=== PATIENT | female | born 1970 | race Caucasian/White ===

== ENCOUNTER 2021-01-23 03:03 | Observation (INO) ==
[2021-01-23] MEDS ORDERED: Naloxone 0.4 MG/ML INJ IVP PRN (08:51)
[2021-01-23] MEDS ORDERED: Ondansetron 4 MG/2 ML VIAL IVP PRN (08:51)
[2021-01-23] MEDS ORDERED: Melatonin 3 MG TABLET PO PRN (08:51)
[2021-01-23] MEDS ORDERED: 0.9 % Sodium Chloride 1,000 ML IVC SCH (09:00)
[2021-01-23] MEDS: *HR* HYDROcodone/Acet 7.5/325 mg TABLET PO PRN ×2 (10:19→21:49)
[2021-01-23] MEDS ORDERED: *HR* Labetalol 20 MG/4 ML SYRINGE IVP ONE (10:56)
[2021-01-23] MEDS ORDERED: *HR* Labetalol 20 MG/4 ML SYRINGE IVP PRN (11:54)
[2021-01-23] MEDS: Vancomycin 1,500 MG/265 ML IV.SOLN IVPB SCH (12:38)
[2021-01-23] MEDS: *HR* Heparin 5,000 UNIT/ML VIAL SQ SCH ×2 (12:41→21:49)
[2021-01-23 14:22] LABS: Influenza A PCR Negative (Negative); Influenza B PCR Negative (Negative); Resp. Syncytial Virus PCR Negative (Negative)
[2021-01-23 14:23] LABS: SARS-CoV-2 by PCR (In House) Negative (Negative)
[2021-01-23] MEDS ORDERED: Acetaminophen IV 1,000 MG/100 ML BAG IVPB ONE (16:38)
[2021-01-23] MEDS ORDERED: *HR* Midazolam HCl 2 MG/2 ML VIAL ONE (16:49)
[2021-01-23] MEDS ORDERED: Lidocaine -MPF 2% 2 ML VIAL ONE ×2 (16:49→17:34)
[2021-01-23] MEDS ORDERED: Ondansetron 4 MG/2 ML VIAL ONE (16:49)
[2021-01-23] MEDS ORDERED: *HR* FentaNYL (PF) 100 MCG/2 ML VIAL ONE (16:49)
[2021-01-23] MEDS ORDERED: Dexamethasone 4 MG/ML VIAL ONE (16:49)
[2021-01-23] MEDS: Piperacillin/Tazobactam 3.375 GM in 0.9 % Sodium Chloride Mini Bag 100 ML IVPB SCH (16:59)
[2021-01-23] MEDS ORDERED: Lidocaine/EPI 1:200k 1% PF 10 ML VIAL ONE (17:02)
[2021-01-24] MEDS: Piperacillin/Tazobactam 3.375 GM in 0.9 % Sodium Chloride Mini Bag 100 ML IVPB SCH ×2 (00:59→08:25)
[2021-01-24] MEDS: Vancomycin 1,500 MG/265 ML IV.SOLN IVPB SCH (01:02)
[2021-01-24 01:13] LABS: Basophils % 0.3 %; Hematocrit 33.7 % (35.3-44.9); Hemoglobin 10.3 g/dL (11.5-15.4); Immature Granulocytes % 0.3 % (0-4); Lymphocytes # 1.3 K/mcL (0.6-4.6); Lymphocytes % 11.1 %; Mean Corpuscular HGB Conc 30.6 g/dL (31.6-35.5); Mean Corpuscular Hemoglobin 24.5 pg (28.0-33.3); Mean Platelet Volume 9.1 fL (9.4-12.4); Monocytes # 0.1 K/mcL (0.0-1.3); Monocytes % 0.9 %; Neutrophils # 10.2 K/mcL (1.6-8.9); Platelet Count 506 K/mcL (140-400); Red Blood Count 4.21 M/mcL (3.82-4.97); Red Cell Distribution Width 15.8 % (11.5-14.5); Segmented Neutrophils % 87.4 %; White Blood Count 11.6 K/mcL (4.3-11.1)
[2021-01-24 01:25] LABS: BUN/Creatinine Ratio 8 (6-26); Blood Urea Nitrogen 4 mg/dL (6-20); Calcium 9.3 mg/dL (8.6-10.3); Carbon Dioxide 23 mEq/L (23-29); Chloride 104 mEq/L (98-107); Glucose 133 mg/dL (70-105); Osmolality,Calculated 281 (280-300); Potassium 4.1 mEq/L (3.5-5.1); Sodium 136 mEq/L (136-145); eGFR For African Americans > 60 (> 60); eGFR For Non-African Americans > 60 (> 60)
[2021-01-24] MEDS: Ketorolac 15 MG/ML VIAL IVP PRN ×2 (01:46→08:30)
[2021-01-24] MEDS: *HR* HYDROcodone/Acet 7.5/325 mg TABLET PO PRN ×2 (03:47→12:28)
[2021-01-24] MEDS: *HR* Heparin 5,000 UNIT/ML VIAL SQ SCH (06:25)
[2021-01-24 10:40] VITALS: BP 158/74
== END 2021-01-24 14:25 | disposition home or self-care (01) ==
LOC: 3NENU → SUATTDRO 07:48
PROVIDERS: ADMIT Family Medicine; ATTEND Internal Medicine